=== PATIENT | female | born 1975 | race Native Hawaiian/Other Pacific Islander ===

== ENCOUNTER 2016-04-28 09:01 | Outpatient (CLI) | payer OTHER | END 2016-04-28 19:08 | disposition home or self-care (01) | LOC: MAMMO 09:01 | DX: Z12.31 Encounter for screening mammogram for malignant neoplasm of breast (principal) | CPT/HCPCS: G0202-TC ==

== ENCOUNTER 2018-03-14 15:26 | Outpatient (CLI) | payer OTHER | END 2018-03-14 23:29 | disposition home or self-care (01) | LOC: RAD 15:26 | DX: Z13.820 Encounter for screening for osteoporosis (principal) ==

== ENCOUNTER 2019-01-11 22:16 | Outpatient (CLI) | payer OTHER | END 2019-01-11 22:20 | disposition short-term general hospital (02) | LOC: AMB 22:16 | DX: M25.561 Pain in right knee (principal); W18.39XA Other fall on same level, initial encounter; Y93.89 Activity, other specified; Y92.538 Other ambulatory health services establishments as the place of occurrence of the external cause | CPT/HCPCS: A0425; A0429 ==

== ENCOUNTER 2019-01-11 22:29 | Emergency (ER) | payer OTHER ==
[~2019-01-11] VITALS: Ht 147.3 cm; Wt 99.8 kg
[2019-01-12 00:15] VITALS: BP 172/80; TEMP 98.6
== END 2019-01-12 00:16 | disposition home or self-care (01) ==
LOC: ED 22:29
DX: S83.8X1A Sprain of other specified parts of right knee, initial encounter (principal); W19.XXXA Unspecified fall, initial encounter; Y93.89 Activity, other specified; Y92.89 Other specified places as the place of occurrence of the external cause
CPT/HCPCS: 96360; 96361; 96372; 99282; 99283; 99284

== ENCOUNTER 2020-02-19 15:55 | Outpatient (CLI) | payer OTHER | END 2020-02-19 19:09 | disposition home or self-care (01) | LOC: RAD 15:55 | PROVIDERS: ATTEND Nurse Practitioner Family | DX: M25.562 Pain in left knee (principal); M25.561 Pain in right knee ==